=== PATIENT | male | born 1980 | race Caucasian/White ===

== ENCOUNTER → 2016-12-11 | Outpatient (CLI) | payer OTHER ==
--- NOTE | 2016-12-11 08:06 | XR ---
EXAMINATION TYPE: XR elbow complete bilateral DATE OF EXAM: 12/11/2016 7:59 AM CLINICAL HISTORY: pain TECHNIQUE: Frontal, lateral and oblique images of the right elbow are obtained. COMPARISON: None. FINDINGS: There is no acute fracture/dislocation evident of the elbow. No abnormal fat pad signs ar e seen. The overlying soft tissue appears unremarkable. IMPRESSION: There is no acute fracture or dislocation of the elbow. ICD 10 NO FRACTURE, INITIAL EVALUATION EXAMINATION TYPE: XR elbow complete bilateral DATE OF EXAM: 12/11/2016 7:59 AM CLINICAL HISTORY: pain TECHNIQUE: Frontal, lateral and oblique images of the left elbow are obtained. COMPARISON: None. FINDINGS: There is no acute fracture/dislocation evident of the elbow. No abnormal fat pad signs ar e seen. The overlying soft tissue appears unremarkable.
== END | disposition home or self-care (01) ==
LOC: RADXRMAIN 07:30
PROVIDERS: ATTEND Internal Medicine
DX: M25.522 Pain in left elbow (principal); M25.521 Pain in right elbow

== ENCOUNTER → 2016-12-11 | Outpatient (CLI) | payer OTHER ==
[2016-12-11 07:40] LABS: CH 31.2; CHCM 34.5; HCT 41.9 % (39.0-53.0); HDW 2.57; HGB 13.8 gm/dL (13.0-17.5); MCH 29.8 pg (25.0-35.0); MCHC 32.8 g/dL (31.0-37.0); MCV 90.9 fL (80.0-100.0); Mean Platelet Volume 7.4; RBC 4.61 m/uL (4.30-5.90); RDW 12.7 % (11.5-15.5); WBC 5.2 k/uL (3.8-10.6)
[2016-12-11 08:52] LABS: ALT 47 U/L (21-72); AST 37 U/L (17-59); Alkaline Phosphatase 35 U/L (38-126); Anion Gap 8 mmol/L; Blood Urea Nitrogen 30 mg/dL (9-20); Calcium 9.4 mg/dL (8.4-10.2); Carbon Dioxide 29 mmol/L (22-30); Chloride 106 mmol/L (98-107); Cholesterol 183 mg/dL (<200); Glucose 98 mg/dL (74-99); HDL Cholesterol 67 mg/dL (40-60); Non-African American GFR(MDRD) >60 (>60 ml/min/1.73 sqM); Potassium 4.9 mmol/L (3.5-5.1); Sodium 143 mmol/L (137-145); Total Bilirubin 1.7 mg/dL (0.2-1.3); Total Protein 7.5 g/dL (6.3-8.2); Triglycerides 47 mg/dL (<150)
[2016-12-11 08:55] LABS: Rheumatoid Factor, Qnt <9 IU/mL (<12)
[2016-12-11 11:36] LABS: Erythrocyte Sedimentation Rate 3 mm/hr (0-15)
== END | disposition home or self-care (01) ==
LOC: LABWHC1 07:07
PROVIDERS: ATTEND Internal Medicine
DX: J32.9 Chronic sinusitis, unspecified (principal)
CPT/HCPCS: 36415; 80053; 80061; 84439; 84443; 85027; 85652; 86038; 86200; 86431

== ENCOUNTER → 2017-03-28 | Outpatient (CLI) | payer OTHER ==
[2017-03-28 17:05] LABS: Basophils # (A) 0.1 k/uL (0-0.2); Basophils % (A) 1 %; CH 31.3; CHCM 33.9; Eosinophils # (A) 0.2 k/uL (0-0.7); Eosinophils % (A) 3 %; HCT 41.6 % (39.0-53.0); HDW 2.48; HGB 13.9 gm/dL (13.0-17.5); Luc # (Auto) 0.17; Luc % (Auto) 2; Lymphocytes # (A) 3.2 k/uL (1.0-4.8); Lymphocytes % (A) 42 %; MCH 30.9 pg (25.0-35.0); MCHC 33.4 g/dL (31.0-37.0); MCV 92.7 fL (80.0-100.0); Mean Platelet Volume 6.8; Monocytes # (A) 0.5 k/uL (0-1.0); Monocytes % (A) 6 %; Neutrophils # (A) 3.5 k/uL (1.3-7.7); Neutrophils % (A) 46 %; RBC 4.48 m/uL (4.30-5.90); RDW 12.9 % (11.5-15.5); WBC 7.7 k/uL (3.8-10.6); WBC (Perox) 7.77
[2017-03-28 17:17] LABS: ALT 44 U/L (21-72); AST 47 U/L (17-59); Alkaline Phosphatase 45 U/L (38-126); Bilirubin, Delta 0.3 mg/dL (0.0-0.2); Non-African American GFR(MDRD) >60 (>60 ml/min/1.73 sqM); Total Bilirubin 1.4 mg/dL (0.2-1.3); Total Protein 7.3 g/dL (6.3-8.2)
== END | disposition home or self-care (01) ==
LOC: LABWHC1 16:47
PROVIDERS: ATTEND Physician Assistant Medical
DX: L40.0 Psoriasis vulgaris (principal)
CPT/HCPCS: 36415; 80076; 82565; 85025; 86480

== ENCOUNTER → 2017-12-10 | Outpatient (CLI) | payer OTHER ==
--- NOTE | 2017-12-10 21:49 | CT ---
EXAMINATION TYPE: CT sinus wo con DATE OF EXAM: 12/10/2017 COMPARISON: NONE HISTORY: Chronic sinusitis CT DLP: 577.30 mGycm CONTRAST: None The paranasal sinuses are examined in the axial plane at 2 mm thick sections. Reconstructed images i n the coronal plane were obtained. Minimal mucosal thickening is within maxillary sinuses. The ethmoid air cells are clear. The spheno id sinuses are clear. The frontal sinuses are clear. The septum is evaluated. There is septal deviation to the left. The ostiomeatal units are patent. IMPRESSIONS: 1. Minimal mucosal thickening within the maxillary sinuses. 2. Septal deviation.
== END | disposition home or self-care (01) ==
LOC: RADCTMAIN 10:41
PROVIDERS: ATTEND Otolaryngology
DX: J34.2 Deviated nasal septum (principal); J34.89 Other specified disorders of nose and nasal sinuses
CPT/HCPCS: 70486

== ENCOUNTER 2018-05-03 10:02 | Day surgery (SDC) | payer OTHER ==
[2018-04-26 10:50] VITALS: BMI 27.4
[~2018-05-03 10:02] MED LIST: DEXAMETHASONE SOD PHOSPHATE 4 MG/ML 1 ML VIAL IV ONE; FAMOTIDINE 20 MG/2 ML VIAL IV ONE; ONDANSETRON 4 MG/2 ML VIAL IVP ONE; ceFAZolin 1,000 MG in DEXTROSE/WATER 1 50ML.BAG IV ONE
[2018-05-03] MEDS: OXYMETAZOLINE 0.05% NASL SPRAY 1 SPRAY BOTTLE NASAL ONE ×5 (11:21→11:43)
[2018-05-03 11:23] VITALS: RESP 16
[2018-05-03] MEDS ORDERED: LACTATED RINGERS 1,000 ML IV ONE ×2 (11:33)
[2018-05-03] MEDS ORDERED: ONDANSETRON 4 MG/2 ML VIAL IVP ONE ×2 (11:44→14:37)
[2018-05-03] MEDS ORDERED: DEXAMETHASONE SOD PHOSPHATE 10 MG/ML 1 ML VIAL IV ONE ×2 (11:44→14:37)
[2018-05-03] MEDS ORDERED: HYDROmorphone (PF) 1 MG/ML ONE (12:14)
[2018-05-03] MEDS ORDERED: fentaNYL (PF) 50 MCG/ML 2 ML AMP ONE (12:14)
[2018-05-03] MEDS ORDERED: SUCCINYLCHOLINE CHLORIDE 100 MG/5 ML SYR IV ONE (12:14)
[2018-05-03] MEDS ORDERED: MIDAZOLAM 2 MG/2 ML VIAL ONE (12:14)
[2018-05-03] MEDS ORDERED: PROPOFOL 10 MG/ML 20 ML VIAL IV ONE (12:14)
[2018-05-03] MEDS ORDERED: LIDOCAINE 1% INJ 10MG/ML (20 ML MDV) ONE (12:14)
[2018-05-03] MEDS ORDERED: LIDOCAINE 1%-EPI 1:100,000 20 ML VIAL SQ ONE ×2 (12:23→13:08)
--- NOTE | 2018-05-03 13:20 | P.OP ---
Date of Procedure: 05/03/18 Preoperative Diagnosis: Deviated nasal septum Inferior turbinate hypertrophy Chronic sinusitis Postoperative Diagnosis: Same Procedure(s) Performed: Septoplasty Outfracture and submucous resection of the inferior turbinates Bilateral endoscopic sinus surgery including bilateral maxillary antrostomy Anesthesia: EDUARDO Surgeon: Mango Faye Estimated Blood Loss (ml): 5 Pathology: other Condition: stable (Nasal septum and sinus contents) Disposition: PACU Indications for Procedure: This is a 37-year-old white male with difficulties with chronic nasal airway obstruction bilaterally left greater than right as well as recurrent/chronic sinusitis. He was noted to have deviated septum to the left inferior turbinate hypertrophy and on computed tomography scan evidence of chronic sinusitis and the bilateral maxillary sinuses Operative Findings: Septum deviated to the left inferior turbinate hypertrophy and obstruction of the maxillary ostia bilaterally with mild mucosal thickening in the maxillary sinuses bilateral Description of Procedure: The patient was brought in the operative suite and placed in a supine position. The patient underwent induction of general anesthesia with oral endotracheal intubation without difficulty. The patient was prepped and draped in usual aseptic fashion. Orbits were in the operating field for monitoring throughout the case and computed tomography scan was on the computer screen for review throughout the case also. 1% lidocaine with 1 100,000 epinephrine was infused submucosally both sides nasal septum as well as lateral nasal wall bilaterally and anterior tips the middle turbinates bilaterally. While this was taking vasoconstrictive effect the inferior turbinates with infractured with [place] elevator. Partial submucous resection inferior of the inferior turbinates was performed with Coblation wand to ablate a portion of the submucosal soft tissue. The inferior turbinates were then outfractured with the [place] elevator. A left hemitransfixion incision was made with the mucoperichondrial and mucoperiosteal flap on the left elevated. Bony cartilaginous junction was disarticulated and mucoperiosteal flap on the right was elevated. The nasal septal deformities were removed with Mao forceps. An inferior cartilaginous strip was removed leaving a full 1.5 cm caudal strut. Checking intranasally this corrected the nasoseptal deformities and the hemitransfixion incision was closed with a running 4-0 chromic. Full 0 endoscopic examination is performed bilaterally. Beginning on the left the middle turbinate was medialized with a [place] elevator. The macula ostium was located with a ballpoint probe and infundibulotomy was performed followed by uncinectomy. Maxillary antrostomy was enlarged at the expense of the anterior and posterior fontanelle taking care anteriorly not to injure the lacrimal bone. The maxillary sinus was evaluated with 30 endoscope and there was mild mucosal thickening noted. The ethmoid bulla was overhanging and therefore ethmoid bullectomy was performed with microdebrider. Attention was then turned to the right where the procedure was followed exactly as it had been on the left including medialization middle turbinate infundibulotomy uncinectomy maxillary antrostomy with exploration and ethmoid bullectomy. Once this was completed standard nasal pore nasal dressing was placed in the middle meatus under direct visualization and Heck airway splints coated bacitracin ointment were placed in nasal cavities and sutured trans-septally with a 4-0 nylon suture. The patient was suctioned in oral gastric fashion. The patient was allowed to emerge from general anesthesia having tolerated well was excised in the operating suite and transferred postoperative recovery area in satisfactory condition.
[2018-05-03 13:32] VITALS: TEMP 97.2
[2018-05-03] MEDS: HYDROmorphone 1 MG/ML 1 ML SYRINGE IVP ONE ×5 (13:41→14:15)
[2018-05-03] MEDS ORDERED: HYDROmorphone 0.5 MG/0.5 ML SYRINGE IVP PRN (14:37)
[2018-05-03] MEDS ORDERED: LACTATED RINGERS 1,000 ML IV SCH (14:37)
[2018-05-03 14:51] VITALS: PULSE 50
[2018-05-03] MEDS ORDERED: HYDROcodone/APAP 7.5-325MG 1 EACH TAB PO ONE (15:12)
[2018-05-03 15:16] VITALS: BP 135/80
== END 2018-05-03 16:17 | disposition home or self-care (01) ==
LOC: OR 10:02
PROVIDERS: ATTEND Otolaryngology
DX: J34.2 Deviated nasal septum (principal); J34.3 Hypertrophy of nasal turbinates; J32.0 Chronic maxillary sinusitis; H93.19 Tinnitus, unspecified ear; L40.9 Psoriasis, unspecified; Z79.890 Hormone replacement therapy; Z79.52 Long term (current) use of systemic steroids; Z79.899 Other long term (current) drug therapy
CPT/HCPCS: 88305; 88300; 30520; 30140; 31256; J2250; J1100; J2405; J2001; J3010; J1170; J0690; J0330; J2704

== ENCOUNTER → 2018-06-24 | Outpatient (CLI) | payer OTHER ==
[2018-06-24 09:23] LABS: Basophils # (A) 0.1 k/uL (0-0.2); Basophils % (A) 1 %; Eosinophils # (A) 0.1 k/uL (0-0.7); Eosinophils % (A) 2 %; HGB 14.2 gm/dL (13.0-17.5); Lymphocytes # (A) 2.3 k/uL (1.0-4.8); Lymphocytes % (A) 37 %; MCHC 33.8 g/dL (31.0-37.0); MCV 88.8 fL (80.0-100.0); Mean Platelet Volume 6.7; Monocytes # (A) 0.6 k/uL (0-1.0); Monocytes % (A) 9 %; Neutrophils # (A) 3.1 k/uL (1.3-7.7); Neutrophils % (A) 49 %; Platelet Count 295 k/uL (150-450); RBC 4.73 m/uL (4.30-5.90); RDW 12.8 % (11.5-15.5); WBC 6.3 k/uL (3.8-10.6)
[2018-06-24 09:37] LABS: ALT 35 U/L (21-72); AST 29 U/L (17-59)
== END | disposition home or self-care (01) ==
LOC: LABWHC1 09:01
PROVIDERS: ATTEND Nurse Practitioner Family
DX: L40.0 Psoriasis vulgaris (principal)
CPT/HCPCS: 36415; 82565; 84450; 84460; 85025

== ENCOUNTER 2018-09-29 02:17 | Emergency (ER) | payer OTHER ==
--- NOTE | 2018-09-29 03:06 | XR ---
EXAMINATION TYPE: XR chest 2V DATE OF EXAM: 09/29/2018 COMPARISON: 02/11/2011 HISTORY: Chest pain TECHNIQUE: Frontal and lateral views of the chest are obtained. FINDINGS: Heart and mediastinum are normal. Lungs are clear. Diaphragm is normal. Bony thorax appear s normal. IMPRESSION: Normal chest. No change.
[2018-09-29] MEDS ORDERED: predniSONE 20 MG TAB PO STA (04:11)
--- NOTE | 2018-09-29 04:13 | ED ---
General Adult HPI - General Chief complaint: Shortness of Breath Stated complaint: Upper Respiratory Time Seen by Provider: 09/29/18 02:32 Source: patient, family Mode of arrival: ambulatory Limitations: no limitations - History of Present Illness Initial comments: This patient is a 37-year-old man presenting to have evaluation for upper respiratory symptoms, including cough, sore throat, congestion. He did indicate difficulty in breathing in triage further questioning reveals that this is mainly in reference to nasal congestion. -: days(s) Consistency: constant Improves with: none Worsens with: none Associated Symptoms: cough, other (Congestion) Treatments Prior to Arrival: none - Related Data Home Medications Medication Instructions Recorded Confirmed Adalimumab [Humira] 40 mg SQ [id number] 12/01/14 09/29/18 Levothyroxine Sodium [Synthroid] 137 mcg PO QAM 12/01/14 09/29/18 Fish Oil 360 mg PO DAILY 04/26/18 09/29/18 Glucosamine Sulfate 500 mg PO DAILY 04/26/18 09/29/18 Lipoflavanoid 4 cap PO DAILY 04/26/18 09/29/18 Previous Rx's Medication Instructions Recorded predniSONE 20 mg PO BID #8 tab 09/29/18 Allergies Allergy/AdvReac Type Severity Reaction Status Date / Time No Known Allergies Allergy Verified 09/29/18 02:25 Review of Systems ROS Statement: Those systems with pertinent positive or pertinent negative responses have been documented in the HPI. ROS Other: All systems not noted in ROS Statement are negative. Constitutional: Denies: fever, chills ENT: Reports: congestion. Denies: ear pain Respiratory: Reports: cough. Denies: dyspnea, wheezes Cardiovascular: Denies: chest pain, palpitations, syncope Gastrointestinal: Denies: abdominal pain, vomiting, diarrhea Skin: Denies: rash Neurological: Denies: headache, weakness, numbness Past Medical History Past Medical History: Hearing Disorder / Deafness, Skin Disorder, Thyroid Disorder Additional Past Medical History / Comment(s): Hypothyroid, psoriais, ringing in bilateral ears. History of Any Multi-Drug Resistant Organisms: C-DIFF Date of last positivie culture/infection: 09/2014 MDRO Source:: stool Past Surgical History: Orthopedic Surgery Additional Past Surgical History / Comment(s): Left knee arthroscopy. Past Anesthesia/Blood Transfusion Reactions: No Reported Reaction Past Psychological History: No Psychological Hx Reported Smoking Status: Never smoker Past Alcohol Use History: None Reported Past Drug Use History: None Reported - Past Family History Mother Family Medical History: No Reported History General Exam Limitations: no limitations General appearance: alert, in no apparent distress Head exam: Present: atraumatic, normocephalic Eye exam: Present: normal appearance. Absent: scleral icterus, conjunctival injection ENT exam: Present: normal oropharynx Neck exam: Present: normal inspection, full ROM Respiratory exam: Present: normal lung sounds bilaterally. Absent: respiratory distress, wheezes, rales, rhonchi, stridor Cardiovascular Exam: Present: regular rate, normal rhythm, normal heart sounds. Absent: systolic murmur, diastolic murmur, rubs, gallop GI/Abdominal exam: Present: soft. Absent: distended, tenderness, guarding, rebound Extremities exam: Present: normal inspection, normal capillary refill. Absent: pedal edema, calf tenderness Back exam: Present: normal inspection. Absent: CVA tenderness (R), CVA tenderness (L) Neurological exam: Present: alert Skin exam: Present: warm, dry, intact, normal color. Absent: rash Course Vital Signs 09/29/18 09/29/18 02:21 04:18 Temperature 98.3 F 98.2 F Pulse Rate 56 L 57 L Respiratory 22 19 Rate Blood Pressure 132/82 121/74 O2 Sat by Pulse 99 97 Oximetry Disposition Clinical Impression: Upper respiratory infection Disposition: HOME SELF-CARE Condition: Good Instructions: Upper Respiratory Infection (ED) Prescriptions: predniSONE 20 mg PO BID #8 tab Is patient prescribed a controlled substance at d/c from ED?: No Referrals: April Llamas MD [Primary Care Provider] - 1-2 days
[2018-09-29 04:19] VITALS: BP 121/74; PULSE 57; RESP 19; TEMP 98.2
== END 2018-09-29 04:28 | disposition home or self-care (01) ==
LOC: EC 02:17
DX: J06.9 Acute upper respiratory infection, unspecified (principal); E03.9 Hypothyroidism, unspecified; H91.90 Unspecified hearing loss, unspecified ear; L40.9 Psoriasis, unspecified; Z79.899 Other long term (current) drug therapy; Z86.69 Personal history of other diseases of the nervous system and sense organs
CPT/HCPCS: 99284; 71046; J7512

== ENCOUNTER → 2018-12-11 | Outpatient (CLI) | payer OTHER ==
[2018-12-11 11:32] LABS: Basophils % (A) 1 %; Eosinophils # (A) 0.2 k/uL (0-0.7); Eosinophils % (A) 4 %; HCT 44.7 % (39.0-53.0); HGB 14.8 gm/dL (13.0-17.5); Lymphocytes % (A) 36 %; MCH 29.8 pg (25.0-35.0); MCHC 33.1 g/dL (31.0-37.0); Mean Platelet Volume 6.5; Monocytes # (A) 0.9 k/uL (0-1.0); Monocytes % (A) 15 %; Neutrophils # (A) 2.3 k/uL (1.3-7.7); Neutrophils % (A) 41 %; Platelet Count 261 k/uL (150-450); RBC 4.97 m/uL (4.30-5.90); WBC 5.6 k/uL (3.8-10.6)
== END ==
LOC: LABWHC1 10:01
PROVIDERS: ATTEND Nurse Practitioner Family
DX: L40.0 Psoriasis vulgaris (principal)
CPT/HCPCS: 36415; 82565; 84450; 84460; 85025

== ENCOUNTER 2018-12-30 16:44 | Emergency (ER) | payer OTHER ==
[2018-12-30 16:48] VITALS: BP 132/86; PULSE 62; RESP 18; TEMP 98.8
[2018-12-30] MEDS ORDERED: Acetaminophen-Codeine 300-30mg TAB PO STA (17:00)
--- NOTE | 2018-12-30 17:02 | ED ---
Upper Extremity HPI - General Chief Complaint: Extremity Injury, Upper Stated Complaint: Arm injury Time Seen by Provider: 12/30/18 16:56 Source: patient Mode of arrival: ambulatory Limitations: no limitations - History of Present Illness Initial Comments: 38 year old male complains of right forearm pain that occurred about one hour prior to arrival. Patient states he fell while holding a piece of wood. Patient having pain near his mid forearm and elbow region. Patient is right- hand dominant. He denies any numbness or tingling. Patient has not had previous fractures to the area. No pain in the wrist or shoulder that side. MD Complaint: Injury to:: right, forearm -: hour(s) (1) Handedness: right - Related Data Home Medications Medication Instructions Recorded Confirmed Adalimumab [Humira] 40 mg SQ [id number] 12/01/14 09/29/18 Levothyroxine Sodium [Synthroid] 137 mcg PO QAM 12/01/14 09/29/18 Fish Oil 360 mg PO DAILY 04/26/18 09/29/18 Glucosamine Sulfate 500 mg PO DAILY 04/26/18 09/29/18 Lipoflavanoid 4 cap PO DAILY 04/26/18 09/29/18 Previous Rx's Medication Instructions Recorded predniSONE 20 mg PO BID #8 tab 09/29/18 HYDROcodone/APAP 5-325MG [Helm 1 tab PO Q6HR PRN 3 Days #12 tab 12/30/18 5-325] Allergies Allergy/AdvReac Type Severity Reaction Status Date / Time No Known Allergies Allergy Verified 12/30/18 16:48 Review of Systems ROS Statement: Those systems with pertinent positive or pertinent negative responses have been documented in the HPI. ROS Other: All systems not noted in ROS Statement are negative. Musculoskeletal: Reports: arthralgia, myalgia, other (right FA pain) Neurological: Denies: numbness, paresthesias Past Medical History Past Medical History: Hearing Disorder / Deafness, Skin Disorder, Thyroid Disorder Additional Past Medical History / Comment(s): Hypothyroid, psoriais, ringing in bilateral ears. History of Any Multi-Drug Resistant Organisms: C-DIFF Date of last positivie culture/infection: 09/2014 MDRO Source:: stool Past Surgical History: Orthopedic Surgery Additional Past Surgical History / Comment(s): Left knee arthroscopy, sinus surgery Past Anesthesia/Blood Transfusion Reactions: No Reported Reaction Past Psychological History: No Psychological Hx Reported Smoking Status: Never smoker Past Alcohol Use History: Occasional Past Drug Use History: None Reported - Past Family History Mother Family Medical History: No Reported History General Exam Limitations: no limitations General appearance: alert, in no apparent distress Right Shoulder Exam: Present: normal inspection, full ROM. Absent: tenderness, swelling Upper Arm exam: Present: normal inspection, full ROM. Absent: tenderness, swelling Elbow exam: Present: normal inspection, full ROM, abrasion. Absent: tenderness , swelling Forearm Wrist exam: Present: tenderness, swelling, deformity (mid right FA). Absent: normal inspection, full ROM Hand Wrist exam: Present: normal inspection. Absent: full ROM, tenderness, swelling Neuro motor exam: Present: wrist extension intact, thumb opposition intact Neurosensory exam: Present: 2-point discrimination Vascular: Present: normal capillary refill Neurological exam: Present: alert, oriented X3, CN II-XII intact Psychiatric exam: Present: normal affect, normal mood Skin exam: Present: warm, dry, intact (slight abrasion to Right elbow region), normal color. Absent: rash Course Vital Signs 12/30/18 16:46 Temperature 98.8 F Pulse Rate 62 Respiratory 18 Rate Blood Pressure 132/86 O2 Sat by Pulse 99 Oximetry Medical Decision Making - Medical Decision Making Reviewed x-ray shows transversely oriented time eating a minimally displaced fracture of the distal ulnar diaphysis. Patient aware short arm OCL splint applied by me and nurse good neurovascular intact patient does not have any complications. Patient to follow-up closely with orthopedic in the next 2 days. Disposition Clinical Impression: Ulnar fracture Disposition: HOME SELF-CARE Condition: Good Instructions (If sedation given, give patient instructions): Arm Fracture in Adults (ED) Prescriptions: HYDROcodone/APAP 5-325MG [Helm 5-325] 1 tab PO Q6HR PRN 3 Days #12 tab PRN Reason: Pain Is patient prescribed a controlled substance at d/c from ED?: Yes When asked, does pt state using other controlled substances?: No If prescribed controlled substance>3 days was MAPS reviewed?: Prescribed <3 Days If opioid is for acute pain is fill amount 7 days or less?: Yes If Rx opioid, was Start Talking consent form obtained?: Yes Referrals: April Llamas MD [Primary Care Provider] - 1-2 days Jeffry Jones DO [Medical Doctor] - 1-2 days Time of Disposition: 17:33
--- NOTE | 2018-12-30 17:17 | XR ---
EXAMINATION TYPE: XR forearm RT DATE OF EXAM: 12/30/2018 CLINICAL HISTORY: Fall, pain TECHNIQUE: Two views of the right forearm are obtained. COMPARISON: None. FINDINGS: Transversely oriented and comminuted fracture is identified of the distal ulnar diaphysis. There is slight radial displacement of the distal fracture fragment. Soft tissue swelling is evident. There is no evidence of radial or ulnar dislocation. IMPRESSION: Transversely oriented, comminuted and minimally displaced fracture of the distal ulnar diaphysis.
== END 2018-12-30 18:34 | disposition home or self-care (01) ==
LOC: EC 16:44
DX: S52.691A Other fracture of lower end of right ulna, initial encounter for closed fracture (principal); S50.311A Abrasion of right elbow, initial encounter; E03.9 Hypothyroidism, unspecified; H91.90 Unspecified hearing loss, unspecified ear; L40.9 Psoriasis, unspecified; Z79.890 Hormone replacement therapy; Z79.899 Other long term (current) drug therapy; Z86.69 Personal history of other diseases of the nervous system and sense organs; W17.89XA Other fall from one level to another, initial encounter; Y93.89 Activity, other specified; Y92.009 Unspecified place in unspecified non-institutional (private) residence as the place of occurrence of the external cause
CPT/HCPCS: 29125; 99283

== ENCOUNTER → 2019-06-23 | Outpatient (CLI) | payer OTHER ==
[2019-06-23 12:10] LABS: Basophils # (A) 0.1 k/uL (0-0.2); Basophils % (A) 1 %; Eosinophils # (A) 0.2 k/uL (0-0.7); Eosinophils % (A) 3 %; HCT 45.8 % (39.0-53.0); HGB 15.2 gm/dL (13.0-17.5); Lymphocytes # (A) 2.8 k/uL (1.0-4.8); Lymphocytes % (A) 34 %; MCH 30.1 pg (25.0-35.0); MCHC 33.2 g/dL (31.0-37.0); MCV 90.7 fL (80.0-100.0); Mean Platelet Volume 6.6; Monocytes # (A) 0.6 k/uL (0-1.0); Monocytes % (A) 7 %; Neutrophils # (A) 4.5 k/uL (1.3-7.7); Neutrophils % (A) 53 %; Platelet Count 307 k/uL (150-450); RBC 5.05 m/uL (4.30-5.90); RDW 13.2 % (11.5-15.5); WBC 8.4 k/uL (3.8-10.6)
[2019-06-23 16:44] LABS: African American GFR (CKD) 87.1 (60.0-200.0)
== END | disposition home or self-care (01) ==
LOC: LABWHC1 11:15
PROVIDERS: ATTEND Dermatology
DX: L40.0 Psoriasis vulgaris (principal)
CPT/HCPCS: 36415; 82565; 84450; 84460; 85025

== ENCOUNTER → 2019-11-24 | Outpatient (CLI) | payer OTHER ==
[2019-11-24 09:55] LABS: Basophils % (A) 1 %; Eosinophils # (A) 0.2 k/uL (0-0.7); Eosinophils % (A) 4 %; HCT 44.4 % (39.0-53.0); HGB 14.5 gm/dL (13.0-17.5); Lymphocytes # (A) 2.1 k/uL (1.0-4.8); Lymphocytes % (A) 43 %; MCH 30.5 pg (25.0-35.0); MCHC 32.7 g/dL (31.0-37.0); MCV 93.4 fL (80.0-100.0); Mean Platelet Volume 7.2; Monocytes # (A) 0.4 k/uL (0-1.0); Monocytes % (A) 9 %; Neutrophils % (A) 41 %; Platelet Count 262 k/uL (150-450); RBC 4.76 m/uL (4.30-5.90); RDW 12.7 % (11.5-15.5); WBC 4.9 k/uL (3.8-10.6)
[2019-11-24 13:42] LABS: African American GFR (CKD) 96.1 (60.0-200.0); Non-African American GFR(CKD) 82.9 (60.0-200.0)
== END | disposition home or self-care (01) ==
LOC: LABWHC1 09:30
PROVIDERS: ATTEND Dermatology
DX: L40.0 Psoriasis vulgaris (principal)
CPT/HCPCS: 36415; 82565; 84450; 84460; 85025; 86480

== ENCOUNTER → 2020-05-30 | Outpatient (CLI) | payer OTHER ==
[2020-05-30 15:37] LABS: Basophils % (A) 1 %; Eosinophils # (A) 0.2 k/uL (0-0.7); Eosinophils % (A) 3 %; HCT 40.7 % (39.0-53.0); HGB 14.6 gm/dL (13.0-17.5); Lymphocytes # (A) 2.8 k/uL (1.0-4.8); Lymphocytes % (A) 40 %; MCH 32.5 pg (25.0-35.0); MCHC 35.9 g/dL (31.0-37.0); MCV 90.6 fL (80.0-100.0); Monocytes # (A) 0.5 k/uL (0-1.0); Monocytes % (A) 7 %; Neutrophils # (A) 3.4 k/uL (1.3-7.7); Neutrophils % (A) 48 %; Platelet Count 230 k/uL (150-450); RBC 4.49 m/uL (4.30-5.90); RDW 12.4 % (11.5-15.5); WBC 7.1 k/uL (3.8-10.6)
[2020-05-30 23:47] LABS: African American GFR (CKD) 96.1 (60.0-200.0); Non-African American GFR(CKD) 82.9 (60.0-200.0)
== END | disposition home or self-care (01) ==
LOC: LABWHC1 14:25
PROVIDERS: ATTEND Dermatology
DX: L40.0 Psoriasis vulgaris (principal)
CPT/HCPCS: 36415; 82565; 84450; 84460; 85025

== ENCOUNTER → 2020-11-28 | Outpatient (CLI) | payer OTHER ==
[2020-11-28 15:40] LABS: Basophils # (A) 0.1 k/uL (0-0.2); Basophils % (A) 1 %; Eosinophils # (A) 0.3 k/uL (0-0.7); Eosinophils % (A) 3 %; HCT 42.2 % (39.0-53.0); HGB 14.6 gm/dL (13.0-17.5); Lymphocytes # (A) 3.8 k/uL (1.0-4.8); Lymphocytes % (A) 43 %; MCH 30.9 pg (25.0-35.0); MCHC 34.7 g/dL (31.0-37.0); MCV 89.2 fL (80.0-100.0); Mean Platelet Volume 6.8; Monocytes # (A) 0.6 k/uL (0-1.0); Monocytes % (A) 7 %; Neutrophils # (A) 3.9 k/uL (1.3-7.7); Neutrophils % (A) 44 %; Platelet Count 246 k/uL (150-450); RBC 4.73 m/uL (4.30-5.90); RDW 12.5 % (11.5-15.5); WBC 8.8 k/uL (3.8-10.6)
[2020-11-29 02:09] LABS: African American GFR (CKD) 95.5 (60.0-200.0); Non-African American GFR(CKD) 82.4 (60.0-200.0)
== END | disposition home or self-care (01) ==
LOC: LABWHC1 14:53
PROVIDERS: ATTEND Physician Assistant Medical
DX: L40.0 Psoriasis vulgaris (principal); K11.6 Mucocele of salivary gland
CPT/HCPCS: 36415; 82565; 84450; 84460; 85025; 86480

== ENCOUNTER → 2021-04-02 | Day surgery (SDC) | payer OTHER ==
[2021-03-30 11:27] VITALS: BMI 27.4
[~2021-04-02] MED LIST changes: -DEXAMETHASONE SOD PHOSPHATE 4 MG/ML 1 ML VIAL IV ONE; -FAMOTIDINE 20 MG/2 ML VIAL IV ONE; +LACTATED RINGERS 1,000 ML IV ONE; +LACTATED RINGERS 1,000 ML IV SCH; -ONDANSETRON 4 MG/2 ML VIAL IVP ONE; +PROPOFOL 10 MG/ML 20 ML VIAL IV ONE; -ceFAZolin 1,000 MG in DEXTROSE/WATER 1 50ML.BAG IV ONE
[2021-04-02 09:06] VITALS: TEMP 98.4
[2021-04-02 10:42] VITALS: RESP 17
--- NOTE | 2021-04-02 10:45 | P.PCN ---
Date of Procedure: 04/02/21 Description of Procedure: BRIEF HISTORY: Patient is a 40-year-old male presenting for outpatient colonoscopy for evaluation of history of colon polyps. The patient reports 2 prior colonoscopies with polypectomy in the past. Family history of colon cancer in his uncle who passed from colon cancer. No change in bowel habits or blood per rectum noted. PROCEDURE PERFORMED: Colonoscopy. PREOPERATIVE DIAGNOSIS: Personal history of colon polyps, last colonoscopy 5 years ago, family history of colon cancer. ESTIMATED BLOOD LOSS: Minimal. IV sedation per Anesthesia. PROCEDURE: After informed consent was obtained, the patient, was brought into the endoscopy unit. IV sedation was administered by Anesthesia under continuous monitoring. Digital rectal examination was normal. Initially the Olympus CF-190 flexible video colonoscope was then inserted in the rectum, gradually advanced into the cecum without any difficulty. Careful examination was performed as the scope was gradually being withdrawn. Ileocecal valve and the appendiceal orifice were visualized and appeared normal. Prep was good with some liquid stool throughout the colon which was lavaged and suctioned. Mucosa of the cecum, ascending colon, transverse colon, descending colon, sigmoid colon, and rectum appeared normal. Retroflexion was performed in the rectum and no lesions were seen, low-grade internal hemorrhoids seen. The patient tolerated the procedure well. IMPRESSION: Normal-appearing colon from rectum to cecum. Internal hemorrhoids. RECOMMENDATIONS: Findings of this examination were discussed with the patient .and his family. Okay to resume diet. Okay to resume medications. Recommend repeat colonoscopy in 5 years for family history of colon cancer personal history of colon polyps.
[2021-04-02 10:56] VITALS: BP 119/65; PULSE 60
== END ==
LOC: ORWHC2ENDO 08:47
PROVIDERS: ATTEND Internal Medicine
DX: Z12.11 Encounter for screening for malignant neoplasm of colon (principal); K64.8 Other hemorrhoids; Z86.010 Personal history of colon polyps; Z80.0 Family history of malignant neoplasm of digestive organs; Z98.890 Other specified postprocedural states; E07.9 Disorder of thyroid, unspecified; L40.9 Psoriasis, unspecified; Z79.890 Hormone replacement therapy; Z79.899 Other long term (current) drug therapy
CPT/HCPCS: J2704; G0105; 45378

== ENCOUNTER → 2021-05-16 | Outpatient (CLI) | payer OTHER | END | disposition home or self-care (01) | DX: L40.0 Psoriasis vulgaris (principal) ==

== ENCOUNTER → 2022-01-25 | Outpatient (CLI) | payer BC ==
[2022-01-25 18:30] LABS: African American GFR (CKD) 85.3 (60.0-200.0); Non-African American GFR(CKD) 73.6 (60.0-200.0)
== END | disposition home or self-care (01) ==
LOC: LABWHC1 13:15
PROVIDERS: ATTEND Dermatology
DX: L40.0 Psoriasis vulgaris (principal)
CPT/HCPCS: 36415; 82565; 84450; 84460; 84520; 86480

== ENCOUNTER → 2023-02-09 | Outpatient (CLI) | payer BC ==
[2023-02-09 20:24] LABS: Basophils # (A) 0.06 X 10*3/uL (0.00-0.10); Basophils % (A) 0.6 %; Eosinophils # (A) 0.19 X 10*3/uL (0.04-0.35); HCT 43.2 % (39.6-50.0); HGB 14.2 g/dL (13.0-17.0); Immature Grans, Automated 0.3 %; Lymphocytes # (A) 3.57 X 10*3/uL (0.90-5.00); Lymphocytes % (A) 38.1 %; MCH 30.1 pg (27.0-32.0); MCHC 32.9 g/dL (32.0-37.0); MCV 91.5 fL (80.0-97.0); Mean Platelet Volume 9.7 fL (9.5-12.2); Monocytes # (A) 1.02 X 10*3/uL (0.20-1.00); Monocytes % (A) 10.9 %; NRBC Per 100 WBC 0 /100 WBCS (0.0-0.0); Neutrophils % (A) 48.1 %; Platelet Count 273 X 10*3/uL (140-440); RBC 4.72 X 10*6/uL (4.40-5.60); RDW 12.1 % (11.5-14.5); WBC 9.37 X 10*3/uL (4.50-10.00)
[2023-02-09 20:37] LABS: African American GFR (CKD) 87.4 (60.0-200.0); Non-African American GFR(CKD) 75.4 (60.0-200.0)
== END | disposition home or self-care (01) ==
LOC: LABWHC1 11:45
PROVIDERS: ATTEND Physician Assistant Medical
DX: L40.0 Psoriasis vulgaris (principal)
CPT/HCPCS: 36415; 82565; 84450; 84460; 85025; 86480

== ENCOUNTER → 2023-12-03 | Outpatient (CLI) | payer BC ==
[2023-12-03 22:49] LABS: Basophils # (A) 0.07 X 10*3/uL (0.00-0.10); Eosinophils # (A) 0.35 X 10*3/uL (0.04-0.35); Eosinophils % (A) 5.1 %; HCT 45.1 % (39.6-50.0); HGB 15.2 g/dL (13.0-17.0); Lymphocytes # (A) 2.92 X 10*3/uL (0.90-5.00); Lymphocytes % (A) 42.3 %; MCH 30.2 pg (27.0-32.0); MCHC 33.7 g/dL (32.0-37.0); MCV 89.5 FL (80.0-97.0); Mean Platelet Volume 10.2 FL (9.5-12.2); Monocytes # (A) 0.75 X 10*3/uL (0.20-1.00); Monocytes % (A) 10.9 %; NRBC Per 100 WBC 0 X 10*3/uL (0.00-0.01); Neutrophils % (A) 40.6 %; Platelet Count 273 X 10*3/uL (140-440); RBC 5.04 X 10*6/uL (4.40-5.60); RDW 12.8 % (11.5-14.5)
[2023-12-03 23:20] LABS: ALT 32 U/L (10-49); AST 28 U/L (14-35); Albumin 4.7 g/dL (3.8-4.9); Albumin/Globulin Ratio 1.74 Ratio (1.60-3.17); Alkaline Phosphatase 41 U/L (41-126); BUN/Creat Ratio 21.17 Ratio (12.00-20.00); Blood Urea Nitrogen 25.4 mg/dL (9.0-27.0); Chloride 101 mmol/L (96-109); Chol/HDL Ratio 3.85 Ratio; Globulin 2.7 g/dL (1.6-3.3); Glucose 93 mg/dL (70-110); LDL Cholesterol,Calculated 138.9 mg/dL (0.0-131.0); Potassium 4.5 mmol/L (3.5-5.5); Sodium 140 mmol/L (135-145); Total Bilirubin 1.5 mg/dL (0.3-1.2); Total Protein 7.4 g/dL (6.2-8.2); VLDL Calculation 16.58 mg/dL (5.00-40.00)
== END | disposition home or self-care (01) ==
LOC: LABWHC1 09:45
PROVIDERS: ATTEND Internal Medicine
DX: Z00.01 Encounter for general adult medical examination with abnormal findings (principal); E03.9 Hypothyroidism, unspecified; E55.9 Vitamin D deficiency, unspecified
CPT/HCPCS: 36415; 80053; 80061; 82306; 84443; 85025

== ENCOUNTER → 2024-03-10 | Outpatient (CLI) | payer BC | END | disposition home or self-care (01) | LOC: LABWHC1 09:35 | PROVIDERS: ATTEND Physician Assistant Medical | DX: L40.0 Psoriasis vulgaris (principal); Z79.899 Other long term (current) drug therapy | CPT/HCPCS: 36415; 86480 ==

== ENCOUNTER 2024-09-09 03:52 | Emergency (ER) | payer BC ==
[2024-09-09 03:59] VITALS: BP 114/73; PULSE 61; RESP 18; TEMP 98.7
[2024-09-09] MEDS: PROPARACAINE 0.5% OPHTH DROPS 15 ML BTL LEFT EYE ONE (04:20)
[2024-09-09] MEDS: PROPARACAINE 0.5% OPHTH DROPS 15 ML BTL LEFT EYE SCH (04:20)
[2024-09-09] MEDS: FLUORESCEIN STRIPS 1 MG STRIP LEFT EYE ONE (04:20)
--- NOTE | 2024-09-09 05:02 | ED ---
Eye Problem HPI - General Chief complaint: Eye Problems Stated complaint: FO in Left Eye Time Seen by Provider: 09/09/24 04:06 Source: patient Mode of arrival: ambulatory Limitations: no limitations - History of Present Illness Initial comments: Patient is a pleasant 43-year-old gentleman presenting today for left eye foreign body sensation. 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 Started noticing irritation left eye before going to bed at 11:00 tonight. Tried rinsing his eye out applying Visine eyedrops without relief. Denies pain, discharge, changes in vision, headache. - Related Data Home Medications Medication Instructions Recorded Confirmed Adalimumab [Humira] 40 mg SQ [id number] 12/01/14 03/30/21 Levothyroxine Sodium [Synthroid] 137 mcg PO QAM 12/01/14 03/30/21 Fish Oil 360 mg PO DAILY 04/26/18 03/30/21 Glucosamine Sulfate 500 mg PO DAILY 04/26/18 03/30/21 Lipoflavanoid 4 cap PO DAILY 04/26/18 03/30/21 Magnesium 200 mg PO DAILY 03/30/21 03/30/21 Multivitamins, Thera [Multivitamin 1 tab PO DAILY 03/30/21 03/30/21 (formulary)] Cetirizine HCl [Zyrtec] 10 mg PO DAILY PRN 03/31/21 03/31/21 Previous Rx's Medication Instructions Recorded Erythromycin Ophth Oint (1 gm) 1 applic LEFT EYE QID 7 Days #2 09/09/24 [Ilotycin Ophth Oint (1 gm)] gram Allergies Allergy/AdvReac Type Severity Reaction Status Date / Time No Known Allergies Allergy Verified 09/09/24 03:59 Review of Systems ROS Statement: Those systems with pertinent positive or pertinent negative responses have been documented in the HPI. ROS Other: All systems not noted in ROS Statement are negative. Past Medical History Past Medical History: Hearing Disorder / Deafness, Skin Disorder, Thyroid Disorder Additional Past Medical History / Comment(s): Hypothyroid, psoriais, ringing in bilateral ears, hx colon polyps. History of Any Multi-Drug Resistant Organisms: C-DIFF Date of last positivie culture/infection: 09/2014 MDRO Source:: stool Past Surgical History: Orthopedic Surgery Additional Past Surgical History / Comment(s): Left knee arthroscopy, sinus surgery Past Anesthesia/Blood Transfusion Reactions: No Reported Reaction Past Psychological History: No Psychological Hx Reported Smoking Status: Never smoker Past Alcohol Use History: None Reported Past Drug Use History: None Reported - Past Family History Mother Family Medical History: No Reported History General Exam - General Exam Comments Initial Comments: PE: CONSTITUTIONAL: [no apparent distress, well appearing] SKIN: [warm, dry, no jaundice, hives or petechiae] EYES:[ pupils are equally round, extraocular movements intact without nystagmus, conjunctiva left eye is mildly erythematous, no discharge, no teardrop pupil, no foreign body, on [place] lamp exam no rust ring, no evidence of foreign body,corneal abrasion noted to eye bordering iris, no jessica's sign, non-icteric sclera ] HENT: [normocephalic, atraumatic, moist mucus membranes, oropharynx clear without exudates] NECK: , [Full range of motion, normal appearance] NEUROLOGIC: [_a/o x 3, GCS 15, normal mentation and speech. Moves all extremities x 4 without motor or sensory deficit] PSYCHIATRIC:[ _normal mood and affect, thought process is clear and linear] Limitations: no limitations Course Vital Signs 09/09/24 03:55 Temperature 98.7 F Pulse Rate 61 Respiratory 18 Rate Blood Pressure 114/73 O2 Sat by Pulse 98 Oximetry Medical Decision Making - Medical Decision Making Was pt. sent in by a medical professional or institution ([facility]AC[facility], [employer]OR, urgent care, hospital, or snf...) When possible be specific @ -[No] Did you speak to anyone other than the patient for history (EMS, parent, family, police, friend...)? What history was obtained from this source @ -[No] Did you review nursing and triage notes (agree or disagree)? Why? @ -[I reviewed and agree with nursing and triage notes] Were old charts reviewed (outside hosp., previous admission, EMS record, old EKG, old radiological studies, urgent care reports/EKG's, snf records)? Report findings @ -[No old charts were reviewed] Differential Diagnosis (chest pain, altered mental status, abdominal pain women, abdominal pain men, vaginal bleeding, weakness, fever, dyspnea, syncope, headache, dizziness, GI bleed, back pain, seizure, CVA, palpatations, mental health, musculoskeletal)? @ -[not applicable] EKG interpreted by me (3pts min.). @ -[As above] X-rays interpreted by me (1pt min.). @ -[None done] CT interpreted by me (1pt min.). @ -[None done] U/S interpreted by me (1pt. min.). @ -[None done] What testing was considered but not performed or refused? (CT, X-rays, U/S, labs)? Why? @ -[None] What meds were considered but not given or refused? Why? @ -[None] Did you discuss the management of the patient with other professionals (professionals i.e. , PA, P[employer]ING SUPERVISOR, lab, RT, psych nurse, social welfare research worker, director hris, teacher, maritime officer, manager case management)? Give summary @ -[No] Was smoking cessation discussed for >3mins.? @ -[No] Was critical care preformed (if so, how long)? @ -[No] Were there social determinants of health that impacted care today? How? (Homelessness, low income, unemployed, alcoholism, drug addiction, transportation, low edu. Level, literacy, decrease access to med. care, prison, rehab)? @ -[No] Was there de-escalation of care discussed even if they declined (Discuss DNR or withdrawal of care, Hospice)? @ -[No] What co-morbidities impacted this encounter? (DM, HTN, Smoking, COPD, CAD, Cancer, CVA, ARF, Chemo, Hep., AIDS, mental health diagnosis, sleep apnea, morbid obesity)? @ -[None] Was patient admitted / discharged? Hospital course, mention meds given and route, prescriptions, significant lab abnormalities, going to OR and other pertinent info. @Discharged Patient is a pleasant 43-year-old gentleman presenting today for left eye irritation, foreign body sensation. 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 When he was going to bed around 11:00 this evening began noticing irritation his left eye. Did wash out his left eye with and apply Visine drops without relief. On my assessment pupils are equal round reactive to light, erythematous mildly erythematous, conjunctiva of the left eye, no chemosis, no proptosis, extraocular moods intact, visual garcía grossly intact. Pimentel lamp exam performed did show corneal abrasion to the left eye around the 4 o'clock position, no rust rings present, no foreign body visible, negative Jessica sign. Patient endorsed relief after application of propocaine eye drops. In case caused by abrasion from metal filing will adminster Tdap. Did discuss with the patient obtaining CT orbits to further assess for evience of metal FB however patient feels this is unlikely from metal work and is comfortable with discharge at this point with erythromycin ointment and will follow up with his opthamologist on Tuesday. As I see no evidence of rust ring or foreign body and findings of corneal abrasion I feel this is reasonable. Undiagnosed new problem with uncertain prognosis? @ -[No] Drug Therapy requiring intensive monitoring for toxicity (Heparin, Nitro, Insulin, Cardizem)? @ -[No] Were any procedures done? @ -[No] Diagnosis/symptom? @ -[default] Acute, or Chronic, or Acute on Chronic? @ -[default] Uncomplicated (without systemic symptoms) or Complicated (systemic symptoms)? @ -[default] Side effects of treatment? @ -[No] Exacerbation, Progression, or Severe Exacerbation? @ -[No] Poses a threat to life or bodily function? How? (Chest pain, [place], [place], pneumonia, PE, COPD, DKA, ARF, appy, cholecystitis, CVA, Diverticulitis, Homicidal, Suicidal, threat to staff... and all critical care pts) @ -[No] Disposition Clinical Impression: Corneal abrasion Disposition: HOME SELF-CARE Condition: Good Instructions (If sedation given, give patient instructions): Corneal Abrasion (ED) Additional Instructions: Every disease is a spectrum and a small chance still exists that a serious condition could develop, for this reason, please monitor yourself closely for new, changing or worsening symptoms, symptoms that do not improve in 24 hours, eye discharge, swelling around your eye, changes in vision, fever, inability to tolerate/keep down fluids or your medications, inability to follow up with outpatient providers as instructed and should you experience these symptoms or should you have any further concerns for your wellbeing please return to the ED or call 911 immediately. Please follow-up with your cytogenetics technologist on Tuesday morning for reassessment. Please apply erythromycin ointment to your affected eye 4 times a day for 1 week. PLEASE call your primary care physician as soon as possible to arrange / discuss plan for followup appointment. Appointment in the next 1-3 days is strongly encouraged if possible. PLEASE let us know here before you leave if there is anything further we can do to be of any assistance. Take care and feel Better! Prescriptions: Erythromycin Ophth Oint (1 gm) [Ilotycin Ophth Oint (1 gm)] 1 applic LEFT EYE QID 7 Days #2 gram Is patient prescribed a controlled substance at d/c from ED?: No Referrals: April Llamas MD [Primary Care Provider] - 1-2 days
[2024-09-09] MEDS: DIPH,PERTUS(ACELL)TETVAC-LF 0.5 ML VIAL IM ONE (05:04)
[2024-09-09] MEDS: ERYTHROMYCIN 5 MG/GM OPHTH OINT 1 GM TUBE LEFT EYE STA (05:12)
== END 2024-09-09 05:18 | disposition home or self-care (01) ==
LOC: EC 03:52
DX: S05.02XA Injury of conjunctiva and corneal abrasion without foreign body, left eye, initial encounter (principal); X58.XXXA Exposure to other specified factors, initial encounter; Y99.0 Civilian activity done for income or pay; Z23 Encounter for immunization
CPT/HCPCS: 90471; 90715; 99283